=== PATIENT | male | born 1990 | race African-American/Black ===

== ENCOUNTER 2019-01-09 15:08 | Emergency (ER) | payer SELFPAY ==
[~2019-01-09] VITALS: Ht 177.8 cm; Wt 72.6 kg
[2019-01-09 15:25] VITALS: BP 137/87
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
[2019-01-09] MEDS ORDERED: DIPHTH,PERTUSS(ACELL),TET TOX 0.5 ML DISP.SYRIN. VAX IM ONE (16:15)
[2019-01-09] MEDS ORDERED: HYDROcodone/APAP 5/325MG 1 TAB TABLET PO ONE (16:15)
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
[2019-01-09] MEDS ORDERED: LIDOCAINE 1% PF 2 ML VIAL. INJ ONE (18:00)
[2019-01-09] MEDS ORDERED: TETRACAINE 0.5% OPHTH SOLUTION 4ML BOTTLE. OD ONE (18:15)
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
[2019-01-09] MEDS ORDERED: HYDR-2765 PO (19:08)
== END 2019-01-09 19:15 | disposition home or self-care (01) ==
LOC: ER 15:08
DX: S02.31XA Fracture of orbital floor, right side, initial encounter for closed fracture (principal); S01.111A Laceration without foreign body of right eyelid and periocular area, initial encounter; S80.211A Abrasion, right knee, initial encounter; S80.811A Abrasion, right lower leg, initial encounter; S00.511A Abrasion of lip, initial encounter; R07.81 Pleurodynia; M25.512 Pain in left shoulder; Y04.8XXA Assault by other bodily force, initial encounter; Y93.89 Activity, other specified; Y92.89 Other specified places as the place of occurrence of the external cause; Y99.8 Other external cause status
CPT/HCPCS: 12011; 70486; 71101; 73030; 90471; 90715; 99283; 99284